=== PATIENT | female | born 2005 | race African-American/Black ===

== ENCOUNTER 2025-01-11 23:24 | Emergency (ER) | payer OTHER, SELFPAY ==
[2025-01-11 23:25] VITALS: BP 116/76
--- NOTE | 2025-01-12 00:01 | ED.GENMED ---
History of Present Illness
General
Chief Complaint: Urinary Symptoms
Source: patient
Time Seen by Provider: 01/11/25 23:41
History of Present Illness
History of Present Illness:
19-year-old female with past medical history of depression presenting to the emergency department for evaluation of dysuria and urinary frequency starting 2 days ago, not any different today but persistent symptoms. Patient states no other symptoms
including fevers, chills, rigors, nausea, vomiting, bowel changes, back or flank pain. Patient notes no vaginal bleeding or discharge. She has no concern for STI and states she has no concern for . Patient stating she has no history of
urinary tract infection.
Past History
Past History
ED Past Medical History: Psychiatric
ED Past Surgical History: None
Social History
Tobacco: Non-smoker
Alcohol: None
Drug: None
Personal: Single
Living: with family
Review of Systems
Review of Systems
All Other Systems: ROS reviewed and negative except as documented in HPI and ROS
Phy Exam
Physical Exam
Physical Exam:
GENERAL: Alert , in no apparent distress
EYE: conjunctiva clear
Head: Normocephalic atraumatic
NECK: Supple,
ENT: mmm.
LUNGS: no acute respiratory distress
NEUROLOGICAL: Alert and oriented
SKIN: Warm and dry, skin intact.
MUSCULOSKELETAL: well perfused.
PSYCH: Normal and appropriate interaction.
Scores
Heart Failure Risk
Heart Failure Risk Score: Not Applicable
Heart Score for Chest Pain Patients
STEMI patient?: Not applicable
Withdrawal Assessment of Alcohol
Withdrawal Assessment Completed?: Not applicable
Course
Orders/Labs/Results
Orders:
Orders
01/11/25 23:41
HCG, Urine Qualitative Screen Urgent
Date Specimen was Collected: 01/12/25
Time Specimen was Collected: 00:48
01/11/25 23:42
Urinalysis Reflex To Culture Urgent
Date Specimen was Collected: 01/12/25
Time Specimen was Collected: 00:48
Test Result ONCE
Vital Signs
Initial and Last Documented VS:
Initial Vital Signs
Temp Pulse Resp BP Pulse Ox
98.9 F 82 18 116/76 98
01/11/25 23:25 01/11/25 23:25 01/11/25 23:25 01/11/25 23:25 01/11/25 23:25
Last Documented Vital Signs
Temp Pulse Resp BP Pulse Ox
98.9 F 82 18 116/76 98
01/11/25 23:25 01/11/25 23:25 01/11/25 23:25 01/11/25 23:25 01/12/25 00:10
MDM/Problems Addressed
Differential Diagnosis Includes:
Cystitis
Pyelonephritis however patient without fevers/flank pain
Renal/Ureteral colic
STI
Candidiasis
MDM/Problems Addressed:
19-year-old female presenting to the emergency department for evaluation of urinary frequency and dysuria over the last 2 days. No history of urinary tract infections in the past. No fevers or infectious symptoms, overall very well-appearing.
Will check urinalysis and urine . Anticipate discharge home.
*Pulse Oximetry
SaO2: 98
Oxygen Mode of Delivery: Room air
Patient hypoxic: no
ED Attending Note
-
Portions of this chart may have been created with voice recognition software.� Occasional wrong word or��sound alike� substitutions may have occurred due to the inherent limitations of voice recognition software.
Discharge Plan
Departure
Patient Disposition: Home (Routine Discharge)
Date of Disposition: 01/12/25
Time of Disposition: 01:17
Patient with high blood pressure during this ER visit?: No
Discharge Problem:
Urinary tract infection
Instructions: Urinary Tract Infection, Adult (DC)
Prescriptions:
New
nitrofurantoin monohyd/m-cryst [Macrobid] 100 mg capsule
100 mg PO Q12H 7 Days Qty: 14 0RF
phenazopyridine [Pyridium] 200 mg tablet
200 mg PO TID PRN (Reason: Pain) Qty: 8 0RF
Referrals:
Carmen Stephens DO [Family Provider, Family Practice]
Interventions
Interventions:
*Risk Screen - Suicide Last Done: 01/11/25 23:25
*General Assessment Last Done: 01/12/25 00:15
*Neglect/Abuse Screening Last Done: 01/11/25 23:25
*ED- Fall Risk Assessment Last Done: 01/12/25 00:15
*ED COVID-19 Vaccine History Last Done: 01/12/25 00:15
ED-Female Genitourinary Assessment Last Done: 01/12/25 00:15
Discharge Date and Time
Print Language: PERSIAN
[2025-01-12 00:14] VITALS: BMI 33.2
[2025-01-12 01:01] LABS: HCG, Urine Qualitative Screen Negative
[2025-01-12 01:12] LABS: Urine Character Slightly Cloudy (Clear)
[2025-01-12 01:20] VITALS: BP 102/61
[2025-01-12] MEDS: MACROBID 100 MG PO (01:24)
[2025-01-12 02:44] LABS: Urine Squamous Cell 16-20 /LPF (Few)
[2025-01-12 02:48] LABS: Urine Red Blood Cell None Seen /HPF (0-2)
== END 2025-01-12 01:46 | disposition home or self-care (01) ==
LOC: EMR 23:24
PROVIDERS: Physician Assistant Medical; EMERGENCY PHYSICIAN Emergency Medicine; FAMILY PHYSICIAN Family Medicine
DX: N39.0 Urinary tract infection, site not specified (principal); F32.A Depression, unspecified
CPT/HCPCS: 99283; 81003; 81015; 81025; 87086